=== PATIENT | male | born 1965 | race Caucasian/White ===

== ENCOUNTER 2021-09-18 04:46 | Observation (INO) | payer BC ==
[~2021-09-18] VITALS: Ht 175.3 cm; Wt 81.6 kg
[2021-09-18] VITALS (11 sets, daily range): BP systolic 106–137; BP diastolic 67–88
[~2021-09-18 04:46] MED LIST: MICARDIS80 MG PO
[2021-09-18 05:08] LABS: BASOPHILS % 0.6 % (0.0-1.0); EOSINOPHILS # (AUTO) 0.1 (0.0-0.4); HEMATOCRIT 49.1 % (38.2-49.6); HEMOGLOBIN 16.1 g/dL (14.0-18.0); LYMPHOCYTES # (AUTO) 2.7 (1.0-3.2); LYMPHOCYTES % 39.9 % (18.0-39.1); MEAN CORPUSCULAR HEMOGLOBIN 30.8 pg (28-32); MEAN CORPUSCULAR HGB CONC 32.8 g/dL (31-35); MEAN CORPUSCULAR VOLUME 94.1 fL (81-99); MONOCYTES # (AUTO) 0.6 (0.2-0.8); NEUTROPHILS # (AUTO) 3.4 (2.1-6.9); NEUTROPHILS % 49.1 % (38.7-80.0); PLATELET COUNT 205 x10e3/uL (140-360); RED BLOOD COUNT 5.22 x10e6/uL (4.3-5.7)
[2021-09-18 05:28] LABS: ALBUMIN 4.4 g/dL (3.5-5.0); ALBUMIN/GLOBULIN RATIO 1.2 (0.8-2.0); CREATININE, SERUM 1.34 mg/dL (0.72-1.25)
[2021-09-18] MEDS ORDERED: NITROGLYCERIN 2% OINT 1 GM PKT TOP ONE (06:00)
[2021-09-18] MEDS ORDERED: NITROGLYCERIN 2% OINT 1 GM PKT ONE (06:12)
[2021-09-18] MEDS ORDERED: ONDANSETRON HCL INJ 2MG/ML 2ML 2 MG/ML VIAL IV PRN ×2 (06:45→10:30)
[2021-09-18] MEDS ORDERED: Morphine 2mg Syringe 2 MG/ML SYR IV PRN (06:45)
[2021-09-18] MEDS ORDERED: ASPIRIN 81 MG ENTERIC COATED PO SCH (09:00)
[2021-09-18] MEDS ORDERED: SODIUM CHLORIDE 0.9% 1000ML 1,000 ML IV SCH (09:15)
[2021-09-18] MEDS ORDERED: HEPARIN SOD (PORCINE) 1000 UNIT/ML 30ML ONE (09:20)
[2021-09-18] MEDS ORDERED: FENTANYL CITRATE/PF 100MCG/2 ML INJ ONE (09:21)
[2021-09-18] MEDS ORDERED: NITROGLYCERIN/D5W 200 MCG/ML 250 ML ONE (09:21)
[2021-09-18] MEDS ORDERED: LIDOCAINE HCL 2% LOCAL 20 ML VIAL ONE (09:21)
[2021-09-18] MEDS ORDERED: MIDAZOLAM HCL 2 MG/2 ML VIAL ONE (09:21)
[2021-09-18] MEDS ORDERED: SODIUM CHLORIDE 0.9% 1000ML 1,000 ML ONE (09:21)
[2021-09-18] MEDS ORDERED: IOPAMIDOL 370 MG/ML 200 ML INFUS..BTL INJ ONE ×2 (09:21→10:06)
[2021-09-18] MEDS ORDERED: HEPARIN SOD/SOD CHLORIDE 2,000 ML ONE (09:21)
[2021-09-18 09:38] LABS: CHOL/HDL RATIO 4.7 (3.9-4.7)
[2021-09-18] MEDS ORDERED: SODIUM CHLORIDE 0.9% 50ML 50 ML ONE (09:58)
[2021-09-18] MEDS ORDERED: BIVALRIUDIN 250 MG/VIAL VIAL IV ONE (09:58)
[2021-09-18] MEDS ORDERED: PRASUGREL 10 MG TAB ONE (10:10)
[2021-09-18] MEDS ORDERED: ASPIRIN 325 MG TAB ONE (10:10)
[2021-09-18] MEDS ORDERED: ACETAMINOPHEN 325 MG TAB PO PRN (10:30)
[2021-09-18] MEDS: SODIUM CHLORIDE 0.9% 1000ML 1,000 ML IV SCH ×2 (10:30→20:59)
[2021-09-18] MEDS ORDERED: HYDROCODONE/APAP 5MG-325MG TAB PO PRN (10:30)
[2021-09-18] MEDS: NITROGLYCERIN 2% OINT 1 GM PKT TOP SCH ×3 (12:00→23:59)
[2021-09-18] MEDS: LOSARTAN POTASSIUM 25 MG TAB PO SCH (16:22)
[2021-09-18 16:32] LABS: CREATINE KINASE MB 0.4 ng/mL (0-5.0)
[2021-09-18] MEDS: METOPROLOL TARTRATE 25 MG TAB PO SCH (16:40)
[2021-09-18] MEDS ORDERED: ZOLPIDEM TARTRATE 5 MG TAB PO PRN (21:00)
[2021-09-18] MEDS ORDERED: ATORVASTATIN 40 MG TAB PO SCH (21:00)
[2021-09-19] VITALS: BP 106/75
[2021-09-19 04:00] VITALS: BP 120/79
[2021-09-19] MEDS: NITROGLYCERIN 2% OINT 1 GM PKT TOP SCH (06:00)
[2021-09-19 06:10] LABS: BASOPHILS % 0.5 % (0.0-1.0); EOSINOPHILS # (AUTO) 0.1 (0.0-0.4); EOSINOPHILS % 2.2 % (0.0-6.0); HEMATOCRIT 43.7 % (38.2-49.6); HEMOGLOBIN 14.2 g/dL (14.0-18.0); LYMPHOCYTES % 34.5 % (18.0-39.1); MEAN CORPUSCULAR HEMOGLOBIN 30.8 pg (28-32); MEAN CORPUSCULAR HGB CONC 32.5 g/dL (31-35); MEAN CORPUSCULAR VOLUME 94.8 fL (81-99); MONOCYTES # (AUTO) 0.5 (0.2-0.8); NEUTROPHILS # (AUTO) 3.1 (2.1-6.9); NEUTROPHILS % 53.8 % (38.7-80.0); PLATELET COUNT 159 x10e3/uL (140-360); RED BLOOD COUNT 4.61 x10e6/uL (4.3-5.7); RED CELL DISTRIBUTION WIDTH 13.2 % (11.7-14.4)
[2021-09-19 06:54] LABS: ALBUMIN 3.7 g/dL (3.5-5.0); ALBUMIN/GLOBULIN RATIO 1.3 (0.8-2.0); ANION GAP 13.1 mmol/L (8-16); CALCIUM 8.5 mg/dL (8.4-10.2); CHOL/HDL RATIO 4.8 (3.9-4.7); CREATININE, SERUM 1.29 mg/dL (0.72-1.25); POTASSIUM 4.1 mmol/L (3.5-5.1)
[2021-09-19] MEDS: SODIUM CHLORIDE 0.9% 1000ML 1,000 ML IV SCH (07:34)
[2021-09-19] MEDS: METOPROLOL TARTRATE 25 MG TAB PO SCH (07:50)
[2021-09-19] MEDS ORDERED: LOPRESSOR25 MG PO (07:54)
[2021-09-19] MEDS ORDERED: EFFIENT10 MG PO (07:54)
[2021-09-19] MEDS ORDERED: ASPIRIN EC81 MG PO (07:54)
[2021-09-19] MEDS ORDERED: Atorvastatin PO (07:54)
[2021-09-19] MEDS ORDERED: COZAAR25 MG PO (07:54)
[2021-09-19] MEDS ORDERED: ESIDRIX25 MG PO (07:54)
[2021-09-19 08:06] VITALS: BP 132/83
[2021-09-19 08:11] LABS: CREATINE KINASE MB 1.1 ng/mL (0-5.0)
[2021-09-19 08:41] VITALS: BP 132/83
[2021-09-19] MEDS: LOSARTAN POTASSIUM 25 MG TAB PO SCH (08:57)
[2021-09-19] MEDS ORDERED: ASPIRIN 81 MG ENTERIC COATED PO SCH (09:00)
[2021-09-19] MEDS ORDERED: HYDROCHLOROTHIAZIDE 25 MG TAB PO SCH (09:00)
[2021-09-19] MEDS ORDERED: PRASUGREL 10 MG TAB PO SCH (09:00)
== END 2021-09-19 10:09 | disposition home or self-care (01) ==
LOC: ER 04:50 → UNDOADMIN 06:40 → ERHOLD 06:40 → CATH LAB 09:26 → MED/SURG 11:46
PROVIDERS: ADMIT Internal Medicine; ATTEND Internal Medicine
DX: I25.110 Atherosclerotic heart disease of native coronary artery with unstable angina pectoris (principal); I24.9 Acute ischemic heart disease, unspecified; I10 Essential (primary) hypertension; E78.5 Hyperlipidemia, unspecified; Z20.822 Contact with and (suspected) exposure to COVID-19; E66.9 Obesity, unspecified; Z68.26 Body mass index [BMI] 26.0-26.9, adult
CPT/HCPCS: 36415 ×2; 71045; 80053 ×2; 80061 ×2; 82550 ×2; 82553 ×2; 83690; 84484 ×2; 85025 ×2; 92928; 93005 ×2; 93458; 94799; 99284; C1760; C1769; C1876; C1887 ×2; G0378 ×2; J0583; J1644; J2001; J2250; J3010; J7030 ×2; Q9967; U0002; 99152; 99153